=== PATIENT | female | born 1970 | race African-American/Black ===

== ENCOUNTER 2017-03-31 16:24 | Emergency (ER) | payer BC ==
[2017-03-31 18:20] LABS: Bilirubin Small (Negative); Blood, Urine Negative (Negative); Glucose, Urine (Dipstick) Negative (Negative); Ketone, Urine 40 mg/dL (Negative); Nitrite Negative (Negative); Protein, Urine (Dipstick) Negative (Neg-Trace); Urobilinogen 0.2 mg/dL (0.2-1.0)
[2017-03-31 19:00] LABS: #Eosinphils 0.1 thou/uL (0.0-0.7); #Lymphocytes 0.9 thou/uL (1.20-3.40); #Monocytes 0.5 thou/uL (0.11-0.59); %Basophils 0.2 % (0.0-1.0); %Eosinophils 0.7 % (0.0-10.0); %Lymphocytes 8.9 % (21.0-51.0); %Monocytes 5.1 % (0.0-10.0); Hematocrit 36.8 % (36.0-47.0); Mean Platelet Volume 8.1 fL (7.4-10.4); Red Blood Cell (RBC) Count 3.99 mill/uL (4.20-5.40); White Blood Cell (WBC) Count 10.6 thou/uL (4.8-10.8)
[2017-03-31 19:12] LABS: ALT (SGPT) 13 U/L (8-55); AST (SGOT) 16 U/L (5-34); Alkaline Phosphatase 43 U/L (40-150); Anion Gap 14 mmol/L (10-20); BUN (Urea Nitrogen) 12 mg/dL (7.0-18.7); Bilirubin, Total 1.3 mg/dL (0.2-1.2); Calc. Creatinine Clearance 0 mL/min (70-130); Calcium 9.3 mg/dL (7.8-10.44); Carbon Dioxide 22 mmol/L (22-29); Chloride 108 mmol/L (98-107); Estimated GFR-MDRD Greater than 90; Globulin 3.2 g/dL (2.4-3.5); Lipase 16 U/L (8-78); Protein, Total 7.4 g/dL (6.0-8.3)
[2017-03-31] MEDS ORDERED: Ondansetron HCl/PF 4 MG/2 ML Vial ONE (19:14)
[2017-03-31] MEDS ORDERED: Ketorolac Tromethamine 30 MG/ML VIAL ONE (19:14)
--- NOTE | 2017-03-31 21:47 | CT ---
ABDOMEN CT WITHOUT CONTRAST PELVIC CT WITHOUT CONTRAST: History: Nausea, vomiting. Onset this afternoon. Patient is feeling ill. Comparison: 01-31-14 Correlation: Pelvic ultrasound, 03-07-17. Technique: Abdomen and pelvic CT are performed without IV contrast. Coronal reformatted images are s ubmitted for interpretation. FINDINGS: ABDOMEN CT: Lung bases are clear. Heart size is normal. No significant pericardial fluid. Descending thoracic ao rta and the abdominal aorta has a normal caliber. No periaortic fat stranding. Gallbladder is surgically absent. Symmetric attenuation of psoas muscles. Limited evaluation of the solid organs due to lack of IV contrast. No obvious solid organ abnormalit ies. No gastrohepatic, retrocrural or periportal lymphadenopathy. No mesenteric mass, lymphadenopathy, free air or free fluid. Limited evaluation of the alimentary canal due to lack of oral contrast. No evidence of bowel obstru ction. Ileocecal junction is normal. Normal caliber appendix. There is some fluid attenuation throug hout the colon. No evidence of chronic wall thickening. Findings are nonspecific. Bilaterally, no hydronephrosis, nephrolithiasis or perinephric fat stranding. Bilateral ureters have a normal caliber. No hydroureter, periatrial fat stranding or ureterolithiasis. Evaluation of urete rs is slightly limited. PELVIC CT: The uterus and right adnexa are unremarkable. There is a hypodense mass in the left adnexa measuring 4.8 x 4.1 cm with an attenuation coefficient of 34 Hounsfield units. A complex left ovarian cyst i s favored. No pelvic lymphadenopathy, free air, or free fluid. The urinary bladder is unremarkable. There are no osteoblastic or osteolytic lesions. Pseudoarthrosis of the right L5 ala with the sacrum is noted. Nonspecific right external iliac lymph node measuring 0.9 x 0.6 cm. IMPRESSION: 1. No evidence of nephrolithiasis or obstructive uropathy. 2. Left adnexal mass, compatible with a complex left ovarian cyst. Follow up with [employer] consultation i s recommended. This cystic lesion was demonstrated on ultrasound from March 07, 2017. POS: [facility]
--- NOTE | 2017-04-06 11:45 | EKG ---
Test Reason : Blood Pressure : / mmHG Vent. Rate : 089 BPM Atrial Rate : 089 BPM P-R Int : 164 ms QRS Dur : 092 ms QT Int : 382 ms P-R-T Axes : 059 050 009 degrees QTc Int : 464 ms Normal sinus rhythm Normal ECG Confirmed by CHANTELLE VELASQUEZ, CYNDIE ([id number]), assignment desk editor SUMAN HERNANDEZ ([id number]) on 04/06/2017 11:44:54 AM Referred By: Confirmed By:CYNDIE LOCKHART MD
== END 2017-03-31 21:25 | disposition home or self-care (01) ==
LOC: ERS 16:24
DX: N83.202 Unspecified ovarian cyst, left side (principal); J45.909 Unspecified asthma, uncomplicated; F17.210 Nicotine dependence, cigarettes, uncomplicated
CPT/HCPCS: 36415; 74176; 80053; 81003; 83690; 84703; 85025; 93005; 96361; 96374; 96375; J1885; J2405

== ENCOUNTER 2017-04-09 05:53 | Emergency (ER) | payer BC ==
[2017-04-09] MEDS ORDERED: Ketorolac Tromethamine 60 MG/2 ML VIAL ONE (06:43)
== END 2017-04-09 07:09 | disposition home or self-care (01) ==
LOC: ERS 05:53
DX: K02.9 Dental caries, unspecified (principal); J45.909 Unspecified asthma, uncomplicated; D64.9 Anemia, unspecified; F17.210 Nicotine dependence, cigarettes, uncomplicated; Z79.899 Other long term (current) drug therapy
CPT/HCPCS: 96372; J1885

== ENCOUNTER 2017-05-15 21:22 | Emergency (ER) | payer BC, SELFPAY ==
[2017-05-15 22:02] LABS: #Basophils 0.1 thou/uL (0.0-0.2); #Eosinphils 0.1 thou/uL (0.0-0.7); #Monocytes 0.4 thou/uL (0.11-0.59); #Neutrophils 2.2 thou/uL (1.40-6.50); %Basophils 1.1 % (0.0-1.0); %Eosinophils 3.1 % (0.0-10.0); %Lymphocytes 41.9 % (21.0-51.0); %Monocytes 9.2 % (0.0-10.0); Hematocrit 34.5 % (36.0-47.0); Mean Platelet Volume 7.5 fL (7.4-10.4); Red Blood Cell (RBC) Count 3.82 mill/uL (4.20-5.40); White Blood Cell (WBC) Count 4.8 thou/uL (4.8-10.8)
== END 2017-05-16 00:24 | disposition home or self-care (01) ==
LOC: ERS 21:22
DX: N93.8 Other specified abnormal uterine and vaginal bleeding (principal); J45.909 Unspecified asthma, uncomplicated; D64.9 Anemia, unspecified; F17.210 Nicotine dependence, cigarettes, uncomplicated
CPT/HCPCS: 36415; 85025; 99284

== ENCOUNTER 2017-07-04 11:30 | Emergency (ER) | payer BC | END 2017-07-04 12:19 | disposition home or self-care (01) | LOC: ERS 11:30 | DX: J11.1 Influenza due to unidentified influenza virus with other respiratory manifestations (principal); J45.909 Unspecified asthma, uncomplicated; D64.9 Anemia, unspecified; F17.210 Nicotine dependence, cigarettes, uncomplicated | CPT/HCPCS: 99283 ==

== ENCOUNTER 2017-07-31 09:18 | Emergency (ER) | payer BC ==
--- NOTE | 2017-07-31 10:53 | RAD ---
SINGLE VIEW OF THE CHEST: COMPARISON: 12/30/16. HISTORY: Back pain and headache. FINDINGS: Single view of the chest shows a normal sized cardiomediastinal silhouette. There is no evidence of c onsolidation, mass, or pleural effusion. The bones are unremarkable. IMPRESSION: No evidence of acute cardiopulmonary disease. POS: [facility]
--- NOTE | 2017-07-31 11:46 | CT ---
HEAD CT WITHOUT CONTRAST: Date: 07-31-17 Comparison: 11-29-16 History: Headache, blurred vision, and intermittent dizziness. Technique: Serial axial CT imaging at 5 mm intervals from vertex through the skull base without contr ast. FINDINGS: The imaged paranasal sinuses and mastoid air cells are well aerated. There is no displace calvarial f racture. There is periventricular and deep white matter hypodensity, similar when compared to prior imaging. N o intracranial hemorrhage, midline shift, or mass effect. IMPRESSION: White matter hypodensity, nonspecific and atypical for a patient of this age. This may represent smal l vessel disease, demyelinating disease, etc. No acute findings are noted. Follow up brain MRI sugges jimbo. POS: [facility]
[2017-07-31 12:25] LABS: Mean Corpuscular HGB CONC 31.7 g/dL (32.0-36.0); Mean Corpuscular Hemoglobin 24.7 pg (27.0-31.0); Mean Corpuscular Volume 77.7 fl (81.0-99.0); Platelet Count 270 thou/uL (130-400); RBC Distribution Width 18.7 % (11.5-14.5); Red Blood Cell (RBC) Count 4.86 mill/uL (4.20-5.40); White Blood Cell (WBC) Count 3.8 thou/uL (4.8-10.8)
[2017-07-31 12:26] LABS: #Eosinphils 0.1 thou/uL (0.0-0.7); #Lymphocytes 1.6 thou/uL (1.20-3.40); #Monocytes 0.4 thou/uL (0.11-0.59); #Neutrophils 1.7 thou/uL (1.40-6.50); %Eosinophils 3.6 % (0.0-10.0); %Neutrophils 43.3 % (42.0-75.0)
[2017-07-31 12:33] LABS: Hypochromia SLIGHT = 6-15 cells (100X) (0-5/hpf); MDiff Complete? YES; Microcytosis SLIGHT = 6-15 cells (100X) (0-5/hpf); Polychromasia SLIGHT = 2-3 cells (100X) (0-2/hpf)
[2017-07-31 12:44] LABS: ALT (SGPT) 12 U/L (8-55); AST (SGOT) 14 U/L (5-34); Alkaline Phosphatase 67 U/L (40-150); Anion Gap 13 mmol/L (10-20); BUN (Urea Nitrogen) 9 mg/dL (7.0-18.7); Bilirubin, Total 0.9 mg/dL (0.2-1.2); CK (CPK) 83 U/L (29-168); Calc. Creatinine Clearance 0 mL/min (70-130); Calcium 9.2 mg/dL (7.8-10.44); Carbon Dioxide 23 mmol/L (22-29); Chloride 106 mmol/L (98-107); Estimated GFR-MDRD Greater than 90; Globulin 3.1 g/dL (2.4-3.5); Glucose 76 mg/dL (70-105); Magnesium 2.1 mg/dL (1.6-2.6); Protein, Total 7.1 g/dL (6.0-8.3); Sodium 138 mmol/L (136-145)
[2017-07-31 12:49] LABS: CKMB 0.6 ng/mL (0-6.6); Troponin I 0.014 ng/mL (< 0.028)
[2017-07-31] MEDS ORDERED: Ketorolac Tromethamine 30 MG/ML VIAL ONE ×2 (14:13→14:18)
== END 2017-07-31 14:21 | disposition home or self-care (01) ==
LOC: ERS 09:18
DX: G89.29 Other chronic pain (principal); M79.604 Pain in right leg; R51 Headache; H53.9 Unspecified visual disturbance; J45.909 Unspecified asthma, uncomplicated; D64.9 Anemia, unspecified; F17.210 Nicotine dependence, cigarettes, uncomplicated; Z79.899 Other long term (current) drug therapy
CPT/HCPCS: 36415; 70450; 71045; 80053; 82553; 83735; 83880; 84484; 85025; 86850; 86870; 86900; 86901; 93005; 96374; J1885

== ENCOUNTER 2017-10-19 14:41 | Emergency (ER) | payer SELFPAY ==
[~2017-10-19 14:41] MED LIST: ISOVUE-370 76%-LOCM 1 ML ONE
[2017-10-19 15:42] LABS: ALT (SGPT) 11 U/L (8-55); AST (SGOT) 17 U/L (5-34); Albumin 4.2 g/dL (3.5-5.0); Alkaline Phosphatase 55 U/L (40-150); Anion Gap 13 mmol/L (10-20); BUN (Urea Nitrogen) 15 mg/dL (7.0-18.7); Bilirubin, Total 0.4 mg/dL (0.2-1.2); Calc. Creatinine Clearance 0 mL/min (70-130); Calcium 8.7 mg/dL (7.8-10.44); Carbon Dioxide 20 mmol/L (22-29); Chloride 111 mmol/L (98-107); Estimated GFR-MDRD Greater than 90; Globulin 3.1 g/dL (2.4-3.5); Glucose 93 mg/dL (70-105); Potassium 4.1 mmol/L (3.5-5.1); Protein, Total 7.3 g/dL (6.0-8.3); Sodium 140 mmol/L (136-145)
[2017-10-19 15:45] LABS: CKMB 1.3 ng/mL (0-6.6); Troponin I Less than 0.010 ng/mL (< 0.028)
[2017-10-19 16:06] LABS: #Eosinphils 0.1 thou/uL (0.0-0.7); #Lymphocytes 1.4 thou/uL (1.20-3.40); #Monocytes 0.5 thou/uL (0.11-0.59); #Neutrophils 3.6 thou/uL (1.40-6.50); %Basophils 0.6 % (0.0-1.0); %Eosinophils 2.4 % (0.0-10.0); %Lymphocytes 24.1 % (21.0-51.0); %Monocytes 8.4 % (0.0-10.0); %Neutrophils 64.6 % (42.0-75.0); Hemoglobin 11.8 g/dL (12.0-16.0); Mean Corpuscular HGB CONC 31.7 g/dL (32.0-36.0); Mean Platelet Volume 8.4 fL (7.4-10.4); Platelet Count 240 thou/uL (130-400); RBC Distribution Width 17.9 % (11.5-14.5); Red Blood Cell (RBC) Count 4.55 mill/uL (4.20-5.40); White Blood Cell (WBC) Count 5.6 thou/uL (4.8-10.8)
[2017-10-19 16:36] LABS: Bilirubin Negative (Negative); Blood, Urine Moderate (Negative); Clarity CLOUDY (Clear); Glucose, Urine (Dipstick) Negative (Negative); Leukocyte Moderate (Negative); Nitrite Positive (Negative); Protein, Urine (Dipstick) Negative (Neg-Trace); Specific Gravity, Urine 1.025 (1.002-1.036); Urobilinogen 0.2 mg/dL (0.2-1.0); pH, Urine 5.5 (5.0-9.0)
[2017-10-19 16:38] LABS: Bacteria/HPF 4+ HPF (None Seen); Hyaline Casts/LPF 0-3 HYALINE CAST LPF (0-3 Hyaline); Pathc Cast-AUWi Flag 0.29 (0-2.49); WBC/HPF 21-50 HPF (0-3)
[2017-10-19 16:48] LABS: RBC/HPF 0-3 HPF (0-3)
[2017-10-19 16:53] LABS: BHCG - Serum Negative (NEGATIVE); Pregs Control Background? CLEAR/WHITE (CLR/WHITE); Pregs Control Bar Appear? YES (CONTROL BAR)
--- NOTE | 2017-10-19 17:32 | CT ---
CT THORAX WITH IV CONTRAST AND 3D RECONSTRUCTIONS: 10/19/17 HISTORY: Episode of shortness of breath and near syncope. Patient reports pain in middle of back following diz ziness. FINDINGS: No filling defects are seen in the pulmonary arteries to suggest a pulmonary embolus. The thoracic ao rta is normal in caliber without evidence of an aortic dissection. There is no lymphadenopathy and me diastinal structures have a normal CT appearance. There are three separate pulmonary nodules seen within the right middle lobe, largest measuring 5 mm. There are also a few pleural based nodules in the right lower lobe adjacent to the major fissure wi th an additional tiny pleural based nodular density measuring less than 4 mm at the posterolateral as pect right lower lobe. No pulmonary nodules are seen on the left. There is no pleural effusion and th e lungs are otherwise clear. A few remote left rib fractures are seen. There are post cholecystectomy changes. Remainder of the upper abdomen demonstrates a normal CT appea sam for phase of imaging. IMPRESSION: 1. Pulmonary nodules within the right middle lobe with a few pleural based nodular densities in the right lower lobe. The pleural based nodular densities were partially visualized on a prior CT abd omen in 2013. However, given that some of the pulmonary nodules were not visualized on the prior stud y, short interval followup CT evaluation of the chest in six months is recommended. 2. No CT evidence of a pulmonary embolus; thoracic aorta is normal in caliber. Code LN POS: [facility]
== END 2017-10-19 16:59 | disposition home or self-care (01) ==
LOC: ERS 14:41
DX: R07.89 Other chest pain (principal); R55 Syncope and collapse; N39.0 Urinary tract infection, site not specified; J45.909 Unspecified asthma, uncomplicated; D64.9 Anemia, unspecified; F17.210 Nicotine dependence, cigarettes, uncomplicated
CPT/HCPCS: 36415; 71275; 80053; 81003; 81015; 82553; 84484; 84703; 85025; 93005; 99406

== ENCOUNTER 2017-11-19 10:34 | Emergency (ER) | payer SELFPAY ==
[2017-11-19 11:23] LABS: #Eosinphils 0.1 thou/uL (0.0-0.7); #Lymphocytes 0.9 thou/uL (1.20-3.40); #Monocytes 0.3 thou/uL (0.11-0.59); %Basophils 0.3 % (0.0-1.0); %Eosinophils 2.3 % (0.0-10.0); %Lymphocytes 20.6 % (21.0-51.0); %Monocytes 6.3 % (0.0-10.0); %Neutrophils 70.6 % (42.0-75.0); Mean Corpuscular HGB CONC 32.9 g/dL (32.0-36.0); Mean Corpuscular Hemoglobin 28.1 pg (27.0-31.0); Mean Corpuscular Volume 85.3 fl (81.0-99.0); Mean Platelet Volume 7.6 fL (7.4-10.4); Platelet Count 248 thou/uL (130-400); RBC Distribution Width 16.4 % (11.5-14.5); Red Blood Cell (RBC) Count 4.27 mill/uL (4.20-5.40); White Blood Cell (WBC) Count 4.2 thou/uL (4.8-10.8)
--- NOTE | 2017-11-19 11:30 | RAD ---
FRONTAL AND LATERAL IMAGING OF CHEST: Date: 11/19/17 COMPARISON: 11/29/16. HISTORY: Back pain, nausea, and palpitations. FINDINGS: Heart and mediastinal contours are stable. No pneumothorax, pleural fluid, lobar consolidation, or al veolar edema. Osseous structures appear intact. IMPRESSION: No acute findings. POS: [facility]
[2017-11-19 11:44] LABS: Troponin I Less than 0.010 ng/mL (< 0.028)
[2017-11-19 12:14] LABS: ALT (SGPT) 11 U/L (8-55); AST (SGOT) 16 U/L (5-34); Albumin 4.2 g/dL (3.5-5.0); Alkaline Phosphatase 47 U/L (40-150); Anion Gap 12 mmol/L (10-20); BUN (Urea Nitrogen) 8 mg/dL (7.0-18.7); Bilirubin, Total 0.5 mg/dL (0.2-1.2); Calc. Creatinine Clearance 0 mL/min (70-130); Calcium 8.4 mg/dL (7.8-10.44); Carbon Dioxide 21 mmol/L (22-29); Chloride 108 mmol/L (98-107); Estimated GFR-MDRD Greater than 90; Glucose 81 mg/dL (70-105); Potassium 3.7 mmol/L (3.5-5.1); Protein, Total 7.2 g/dL (6.0-8.3); Sodium 137 mmol/L (136-145)
[2017-11-19] MEDS ORDERED: Ondansetron ODT 4 MG TAB ONE (13:48)
[2017-11-19] MEDS ORDERED: Dicyclomine 20 MG TAB ONE (13:48)
[2017-11-19 14:16] LABS: Bilirubin Negative (Negative); Blood, Urine Moderate (Negative); Clarity CLOUDY (Clear); Glucose, Urine (Dipstick) Negative (Negative); Leukocyte Negative (Negative); Nitrite Negative (Negative); Protein, Urine (Dipstick) Negative (Neg-Trace); Specific Gravity, Urine 1.014 (1.002-1.036); Urobilinogen 0.2 mg/dL (0.2-1.0)
[2017-11-19 14:21] LABS: Bacteria/HPF 1+ HPF (None Seen); Hyaline Casts/LPF 0-3 HYALINE CAST LPF (0-3 Hyaline); Pathc Cast-AUWi Flag 0.29 (0-2.49)
[2017-11-19 14:25] LABS: Yeast-AUWi Flag 87.5 (0-25.0)
[2017-11-19 14:38] LABS: RBC/HPF 0-3 HPF (0-3); Yeast-All Forms None Seen HPF (None Seen)
== END 2017-11-19 15:11 | disposition home or self-care (01) ==
LOC: ERS 10:34
DX: R10.12 Left upper quadrant pain (principal); R11.0 Nausea; J45.909 Unspecified asthma, uncomplicated; D64.9 Anemia, unspecified; F17.210 Nicotine dependence, cigarettes, uncomplicated; Z79.899 Other long term (current) drug therapy
CPT/HCPCS: 36415; 71046; 80053; 81003; 81015; 82553; 83690; 84484; 85025; 87086; 93005; Q0162

== ENCOUNTER 2017-12-16 09:30 | Observation (INO) | payer SELFPAY ==
[2017-12-16] MEDS ORDERED: Regadenoson 0.4 MG/5 ML SYRINGE ONE (09:32)
[2017-12-16] MEDS ORDERED: Lorazepam 2 MG/ML VIAL ONE (09:47)
--- NOTE | 2017-12-16 10:07 | RAD ---
PORTABLE UPRIGHT FRONTAL CHEST RADIOGRAPH: Date: 12-16-17 Comparison: 07-31-17 History: Chest pain with dizziness and chest pressure. FINDINGS: Heart and mediastinal contours are stable. No pneumothorax, pleural fluid, focal consolidation or aileen eolar edema. IMPRESSION: No acute findings. POS: [facility]
[2017-12-16 10:38] LABS: #Eosinphils 0.1 thou/uL (0.0-0.7); #Lymphocytes 1.3 thou/uL (1.20-3.40); #Monocytes 0.4 thou/uL (0.11-0.59); #Neutrophils 2.2 thou/uL (1.40-6.50); %Basophils 0.9 % (0.0-1.0); %Eosinophils 2.6 % (0.0-10.0); %Lymphocytes 33.3 % (21.0-51.0); %Monocytes 9.8 % (0.0-10.0); %Neutrophils 53.4 % (42.0-75.0); Hemoglobin 13.4 g/dL (12.0-16.0); Mean Corpuscular HGB CONC 32.6 g/dL (32.0-36.0); Mean Corpuscular Hemoglobin 27.5 pg (27.0-31.0); Mean Corpuscular Volume 84.4 fl (81.0-99.0); Mean Platelet Volume 7.9 fL (7.4-10.4); Platelet Count 219 thou/uL (130-400); RBC Distribution Width 16.6 % (11.5-14.5); Red Blood Cell (RBC) Count 4.89 mill/uL (4.20-5.40)
[2017-12-16] MEDS ORDERED: Aspirin 325 MG TAB ONE ×2 (10:50→11:07)
[2017-12-16] MEDS ORDERED: Enoxaparin Sodium 100 MG/ML SYRINGE ONE (10:50)
[2017-12-16 10:57] LABS: ALT (SGPT) 18 U/L (8-55); AST (SGOT) 21 U/L (5-34); Albumin 4.1 g/dL (3.5-5.0); Alkaline Phosphatase 51 U/L (40-150); Anion Gap 13 mmol/L (10-20); BUN (Urea Nitrogen) 14 mg/dL (7.0-18.7); CK (CPK) 179 U/L (29-168); Calc. Creatinine Clearance 0 mL/min (70-130); Carbon Dioxide 20 mmol/L (22-29); Chloride 108 mmol/L (98-107); Estimated GFR-MDRD Greater than 90; Globulin 2.9 g/dL (2.4-3.5); Glucose 90 mg/dL (70-105); Lipase 19 U/L (8-78); Potassium 3.8 mmol/L (3.5-5.1); Sodium 137 mmol/L (136-145)
[2017-12-16 11:01] LABS: Troponin I Less than 0.010 ng/mL (< 0.028)
[2017-12-16] MEDS ORDERED: Acetaminophen 325 MG TAB PO PRN (11:28)
[2017-12-16] MEDS ORDERED: Nitroglycerin 0.4 MG TAB (25 Tab Bottle) PO PRN (11:28)
[2017-12-16] MEDS ORDERED: Guaifenesin DM 100-10/5 ML UDCUP PO PRN (11:28)
[2017-12-16] MEDS ORDERED: Ondansetron HCl/PF 4 MG/2 ML Vial IVP PRN (11:28)
[2017-12-16 12:17] VITALS: BMI 43.0
[2017-12-16 14:32] LABS: Troponin I Less than 0.010 ng/mL (< 0.028)
--- NOTE | 2017-12-16 15:36 | HP ---
REASON FOR ADMISSION: Atrial fibrillation with rapid ventricular response, chest pain. HISTORY OF PRESENT ILLNESS: The patient gives history of developing retrosternal chest tightening while she was at work around 9 in the morning. This lasted for 45 minutes. She also felt dizzy and almost fell. Other co- workers tried to make her sit, but when patient tried to stand up, she felt dizzy again. On arrival in ER, the patient had an EKG done, which showed atrial fibrillation with RVR. New onset atrial fibrillation. The patient did not have any radiation of her pain or tightness. No complaints of cough or expectoration. No complaints of PND or orthopnea. No prior cardiac workup in the past. PAST MEDICAL AND SURGICAL HISTORY: History of chronic anemia due to menorrhagia for which she follows up with primary care physician at [facility]. Cholecystectomy, tubal ligation. CURRENT MEDICATIONS: Ferrous sulfate 325 mg daily, takes medroxyprogesterone for her menorrhagia and the patient thinks that she is perimenopausal. ALLERGIES: CODEINE. PERSONAL HISTORY: Smokes half pack a day from last 20 years or so. Does not abuse alcohol or drugs. FAMILY HISTORY: Mother lived up to 73 years. She has had history of diabetes and hypertension. Father at the age of 82, had hypertension and COPD. CODE STATUS: FULL. REVIEW OF SYSTEMS: The following complete review of systems was negative, unless otherwise mentioned in the HPI or below: Constitutional: Weight loss or gain, ability to conduct usual activities. Skin: Rash, itching. Eyes: Double vision, pain. ENT/Mouth: Nose bleeding, neck stiffness, pain, tenderness. Cardiovascular: Palpitations, dyspnea on exertion, orthopnea. Respiratory: Shortness of breath, wheezing, cough, hemoptysis, fever or night sweats. Gastrointestinal: Poor appetite, abdominal pain, heartburn, nausea, vomiting, constipation, or diarrhea. Genitourinary: Urgency, frequency, dysuria, nocturia. Musculoskeletal: Pain, swelling. Neurologic/Psychiatric: Anxiety, depression. Allergy/Immunologic: Skin rash, bleeding tendency. PHYSICAL EXAMINATION: GENERAL: The patient is a 47-year-old female who is currently not in any acute distress. VITAL SIGNS: Blood pressure 146/90, pulse 90 per minute, respiratory rate 20 per minute, temperature 98.9 degrees Fahrenheit, and saturating 98% on room air. NECK: Supple, no elevated JVD. HEENT: Eyes: Extraocular muscles intact. Pupils reacting to light. Oral cavity mucous membranes are moist. No exudates or congestion. CARDIOVASCULAR: S1 and S2 heard. Irregular rhythm. RESPIRATORY: Air entry 1+ bilateral. Scattered rhonchi plus no rales or wheezes. ABDOMEN: Soft, bowel sounds heard. No tenderness, rigidity or guarding. EXTREMITIES: No peripheral edema or calf tenderness. VASCULAR SYSTEM: Peripheral pulses 2+ bilateral, no ischemic ulcerations or gangrene. CENTRAL NERVOUS SYSTEM: No gross focal deficits seen. Patient is alert, awake , oriented well. PSYCHIATRIC: The patient is a bit anxious, otherwise no hallucinations or delusions. LABORATORY AND X-RAY FINDINGS: White count of 4, H&H 13 and 41, platelet count 219, MCV is 84 with 53% neutrophils. Serum bicarbonate is 20, BUN 14, creatinine 0.7, glucose 90. Liver enzymes within normal limits. First set of cardiac enzymes are negative. Chest x-ray done shows no acute findings. EKG done shows atrial fibrillation at 100 beats per minute. CLINICAL IMPRESSION AND PLAN: The patient will be under observation on telemetry for new onset atrial fibrillation with rapid ventricular response and chest tightness. We will obtain two more sets of cardiac enzymes and a nuclear stress test. Echo with 2D Doppler for LV function and to rule out thrombus. We will also keep her n.p.o. and obtain cardiology consultation with Dr. Rajan, who is regional tanker truck driver. We will place her on a full dose aspirin, Lopressor 25 mg twice daily, and hold off on Lovenox until after her stress test. The patient's BMI is 43, likely might have a component of obesity hypoventilation with likely increased RV pressures. We will continue to closely monitor her on telemetry. Addendum: stress test is -ve for reversible ischemia. DC pt home on full dose aspirin and lopressor. Please note this is a same day admit and discharge under observation. CHEMO
[2017-12-16 15:56] VITALS: BP 122/62; TEMP 98.6
--- NOTE | 2017-12-16 16:42 | NM ---
CARDIAC SPECT: HISTORY: A 47-year-old female with chest pain and asthma. Smoker. TECHNIQUE: A stress only myocardial perfusion scan was performed following the intravenous administration of 29 millicuries of technetium 99m sestamibi. Pharmacologic stress with Lexiscan was monitored and interp reted by LUIS Huang. FINDINGS: Homogeneous tracer distribution is seen in the myocardial segments on the post stress images. GATED SPECT LVEF: 64% WALL MOTION: Normal. IMPRESSION: Normal post stress myocardial perfusion scan. POS: [facility]
[2017-12-16] MEDS ORDERED: Ferrous Sulfate 325 MG TAB PO SCH (17:00)
[2017-12-16 17:08] LABS: Troponin I Less than 0.010 ng/mL (< 0.028)
--- NOTE | 2017-12-16 19:13 | CON ---
DATE OF SERVICE: 12/16/2017 REASON FOR CONSULTATION: Atrial fibrillation. HISTORY OF PRESENT ILLNESS: Ms. Cai is a 47-year-old woman with no significant past medical hist ory, recently presented with tachycardia. No chest pain or pressure noted. Only complaint was palpi tations. She presented to the emergency room. She converted to sinus rhythm. She underwent a nonin vasive stress study that was negative for ischemia. PAST MEDICAL HISTORY: Menorrhagia, anemia. CARDIAC RISK FACTORS: Positive for tobacco abuse. Negative hypertension. Negative hyperlipidemia. Negative diabetes mellitus. Negative family history of coronary artery disease. ALLERGIES: CODEINE. HOME MEDICATIONS: Include iron sulfate and progesterone. REVIEW OF SYSTEMS: 10-point review of systems were reviewed and as above, otherwise negative. PHYSICAL EXAMINATION: VITAL SIGNS: Blood pressure 122/62, pulse 98, temperature 98.6. GENERAL: Patient is a pleasant female who is in no acute distress. The patient appears her stated a ge. NEUROLOGIC: The patient is alert and oriented times 3 with no focal neurologic deficits. HEENT: Sclerae without icterus. Mouth has moist mucous membranes with normal pallor. NECK: No JVD. Carotid upstroke brisk. No bruits bilaterally. LUNGS: Clear to auscultation with unlabored respirations. BACK: No scoliosis or kyphosis. CARDIAC: Regular rate and rhythm with normal S1 and S2. No S3 or S4 noted. No significant rubs, murmurs, thrills, or gallops noted throughout the precordium. PMI is not displa noe. There is no parasternal heave. ABDOMEN: Soft, nontender, nondistended. No peritoneal signs present. No hepatosplenomegaly. No abnormal striae. EXTREMITIES: 2+ femoral and 2+ dorsalis pedis pulses. No cyanosis, clubbing, or edema. SKIN: No gross abnormalities. PERTINENT LABS: Hemoglobin 13.4, creatinine 0.7. Stress test myocardial perfusion scan negative for ischemia. IMPRESSION: Atrial fibrillation, now sinus rhythm. RECOMMENDATIONS: Ms. Cai' CHADS-VASc score is estimated at 1 given that she is female. I discus sed risks, benefits of anticoagulation therapy. Given menorrhagia, she is unlikely a good candidate for anticoagulation plus her bleeding risk, at this point is higher than the risk of cerebrovascular accident. We will then defer and go with full dose aspirin. We would also recommend low dose beta b locker therapy. Plan is to follow up with Ms. Cai in next 1-2 weeks.
[2017-12-16] MEDS ORDERED: Metoprolol Tartrate 25 MG TAB PO SCH (21:00)
[2017-12-16] MEDS ORDERED: Docusate 100 MG CAP PO SCH (21:00)
[2017-12-16] MEDS ORDERED: Famotidine 20 MG TAB PO SCH (21:00)
[2017-12-17] MEDS ORDERED: Enoxaparin Sodium 40 MG/0.4 ML SYRINGE SC SCH (09:00)
[2017-12-17] MEDS ORDERED: Aspirin 325 MG TAB PO SCH ×2 (09:00)
== END 2017-12-16 18:12 | disposition home or self-care (01) ==
LOC: ERS 09:30 → 2SW 11:58
PROVIDERS: ADMIT Internal Medicine; ATTEND Internal Medicine
DX: I48.91 Unspecified atrial fibrillation (principal); D50.0 Iron deficiency anemia secondary to blood loss (chronic); F41.9 Anxiety disorder, unspecified; F32.9 Major depressive disorder, single episode, unspecified; F17.210 Nicotine dependence, cigarettes, uncomplicated; Z88.5 Allergy status to narcotic agent; Z79.82 Long term (current) use of aspirin; Z79.899 Other long term (current) drug therapy
CPT/HCPCS: 36415; 71045; 78452; 80053; 82550; 82553; 83690; 84484; 85025; 93005; 93017; 96372; 96374; A9500; G0378; J1650; J2060; J2785

== ENCOUNTER 2017-12-16 22:31 | Emergency (ER) | payer SELFPAY ==
[2017-12-17] MEDS ORDERED: Acetaminophen 500 MG TAB ONE (00:33)
== END 2017-12-17 01:41 | disposition home or self-care (01) ==
LOC: ERS 22:31
DX: R00.2 Palpitations (principal); D64.9 Anemia, unspecified; J45.909 Unspecified asthma, uncomplicated; F17.210 Nicotine dependence, cigarettes, uncomplicated; Z71.6 Tobacco abuse counseling; Z79.899 Other long term (current) drug therapy
CPT/HCPCS: 93005; 99406

== ENCOUNTER 2018-01-11 06:24 | Emergency (ER) | payer SELFPAY ==
[2018-01-11 07:15] LABS: #Eosinphils 0.1 thou/uL (0.0-0.7); #Monocytes 0.5 thou/uL (0.11-0.59); #Neutrophils 2.6 thou/uL (1.40-6.50); %Basophils 0.9 % (0.0-1.0); %Eosinophils 2.8 % (0.0-10.0); %Lymphocytes 37.4 % (21.0-51.0); %Monocytes 9.3 % (0.0-10.0); %Neutrophils 49.7 % (42.0-75.0); Mean Corpuscular HGB CONC 34.9 g/dL (32.0-36.0); Mean Corpuscular Hemoglobin 29.7 pg (27.0-31.0); Mean Corpuscular Volume 85.1 fL (78.0-98.0); Mean Platelet Volume 7.8 fL (7.4-10.4); Platelet Count 201 thou/uL (130-400); Red Blood Cell (RBC) Count 4.03 mill/uL (4.20-5.40); White Blood Cell (WBC) Count 5.2 thou/uL (4.8-10.8)
[2018-01-11] MEDS ORDERED: Ondansetron ODT 4 MG TAB ONE (07:23)
--- NOTE | 2018-01-11 07:50 | CT ---
CT ABDOMEN AND PELVIS WITH IV CONTRAST: Date: 01/11/18 PROVIDED CLINICAL HISTORY: Left-sided pain. FINDINGS: The visualized lung bases appear clear. The solid abdominal organs demonstrate an unremarkable CT kristina earance. There is no bowel dilatation, inflammatory fat stranding, free fluid, or free air apparent. The appendix appears normal. There is a 5.3 cm left hemipelvic mass demonstrating Hounsfield units gr eater than expected for simple fluid. This may reflect a hemorrhagic physiologic cyst but is incomple tely characterized by CT. IUD is noted within the endometrial canal. The osseous structures demonstrate no concerning lytic or blastic lesions. Bilateral L5 pars defects are seen. Changes of prior cholecystectomy are seen. IMPRESSION: 5.3 cm left hemipelvic mass, possibly a hemorrhagic physiologic cyst. Correlation with pelvic ultraso und recommended. POS: [facility]
[2018-01-11 08:03] LABS: ALT (SGPT) 12 U/L (8-55); AST (SGOT) 15 U/L (5-34); Alkaline Phosphatase 41 U/L (40-150); Anion Gap 11 mmol/L (10-20); BUN (Urea Nitrogen) 13 mg/dL (7.0-18.7); Bilirubin, Total 0.8 mg/dL (0.2-1.2); Calc. Creatinine Clearance 0 mL/min (70-130); Calcium 8.6 mg/dL (7.8-10.44); Carbon Dioxide 22 mmol/L (22-29); Chloride 112 mmol/L (98-107); Estimated GFR-MDRD Greater than 90; Globulin 2.6 g/dL (2.4-3.5); Glucose 84 mg/dL (70-105); Lipase 51 U/L (8-78); Protein, Total 6.6 g/dL (6.0-8.3); Sodium 141 mmol/L (136-145)
[2018-01-11] MEDS ORDERED: Morphine 4 MG/ML VIAL ONE (08:17)
--- NOTE | 2018-01-11 10:30 | ULT ---
PELVIC ULTRASOUND INCLUDING TRANSABDOMINAL AND TRANSVAGINAL AND VASCULAR DUPLEX WITH COLOR AND SPECTR AL DOPPLER IMAGING: Date: 01/11/18 COMPARISON: Prior CT dated 01/11/18. Prior pelvic ultrasound examination dated 11/29/16. HISTORY: 47-year-old female with left-sided pelvic pain. Irregular periods. FINDINGS: Uterus measures 11.0 x 4.7 x 4.9 cm. Endometrium is 0.4 cm. Intrauterine device is demonstrated. Right ovary is not demonstrated. Left ovary measures 4.6 x 5.4 x 5.2 cm and contains a cyst measuring 3.9 x 4.0 x 4.9 cm. Vascular flow is documented to the left ovary. This left ovarian cyst was present on the prior pelvic ultrasound examination dating back to 03/07/17 and is overall stable. IMPRESSION: Overall stable left ovarian thin-walled cyst dating back to a prior study of 03/07/17. Nonvisualized right ovary. IUD in place. No abscess or abnormal fluid collection. POS: [facility]
[2018-01-11] MEDS ORDERED: ISOVUE-370 76%-LOCM 1 ML ONE (12:22)
== END 2018-01-11 10:16 | disposition home or self-care (01) ==
LOC: ERS 06:24
DX: N83.202 Unspecified ovarian cyst, left side (principal); D64.9 Anemia, unspecified; J45.909 Unspecified asthma, uncomplicated; F41.9 Anxiety disorder, unspecified; F17.210 Nicotine dependence, cigarettes, uncomplicated; Z79.899 Other long term (current) drug therapy
CPT/HCPCS: 74177; 76856; 80053; 83690; 85025; 96361; 96374; J2270; Q0162

== ENCOUNTER 2018-01-14 23:23 | Emergency (ER) | payer SELFPAY ==
[2018-01-15] MEDS ORDERED: Metoprolol Tartrate 5 MG/5 ML VIAL ONE (01:06)
[2018-01-15 01:15] LABS: #Eosinphils 0.1 thou/uL (0.0-0.7); #Lymphocytes 1.9 thou/uL (1.20-3.40); #Monocytes 0.4 thou/uL (0.11-0.59); #Neutrophils 3.8 thou/uL (1.40-6.50); %Basophils 0.3 % (0.0-1.0); %Eosinophils 1.6 % (0.0-10.0); %Lymphocytes 30.8 % (21.0-51.0); %Monocytes 6.7 % (0.0-10.0); %Neutrophils 60.5 % (42.0-75.0); Hemoglobin 12.9 g/dL (12.0-16.0); Mean Corpuscular HGB CONC 34.1 g/dL (32.0-36.0); Mean Corpuscular Hemoglobin 29.2 pg (27.0-31.0); Mean Corpuscular Volume 85.5 fL (78.0-98.0); Mean Platelet Volume 7.6 fL (7.4-10.4); Platelet Count 214 thou/uL (130-400); RBC Distribution Width 18.3 % (11.5-14.5); Red Blood Cell (RBC) Count 4.42 mill/uL (4.20-5.40); White Blood Cell (WBC) Count 6.2 thou/uL (4.8-10.8)
[2018-01-15 01:27] LABS: ALT (SGPT) 12 U/L (8-55); AST (SGOT) 15 U/L (5-34); Albumin 3.9 g/dL (3.5-5.0); Alkaline Phosphatase 49 U/L (40-150); Anion Gap 12 mmol/L (10-20); BUN (Urea Nitrogen) 12 mg/dL (7.0-18.7); Bilirubin, Total 0.6 mg/dL (0.2-1.2); Calc. Creatinine Clearance 0 mL/min (70-130); Calcium 8.9 mg/dL (7.8-10.44); Carbon Dioxide 20 mmol/L (22-29); Chloride 109 mmol/L (98-107); Estimated GFR-MDRD Greater than 90; Globulin 2.8 g/dL (2.4-3.5); Glucose 138 mg/dL (70-105); Potassium 3.2 mmol/L (3.5-5.1); Protein, Total 6.7 g/dL (6.0-8.3); Sodium 138 mmol/L (136-145)
[2018-01-15 01:31] LABS: CKMB 1.8 ng/mL (0-6.6); Troponin I Less than 0.010 ng/mL (< 0.028)
[2018-01-15] MEDS ORDERED: Metoprolol Tartrate 25 MG TAB ONE (01:51)
--- NOTE | 2018-01-15 07:42 | RAD ---
SINGLE VIEW CHEST: Date: 01/15/18 COMPARISON: 12/16/17. HISTORY: Heart racing and feeling dizziness. FINDINGS: Single view of the chest shows an enlarged but stable cardiomediastinal silhouette. There is no evide nce of consolidation, mass, or pleural effusion. The bones are unremarkable. IMPRESSION: Stable cardiomegaly. POS: [facility]
== END 2018-01-15 02:00 | disposition home or self-care (01) ==
LOC: ERS 23:23
DX: I48.0 Paroxysmal atrial fibrillation (principal); D64.9 Anemia, unspecified; J45.909 Unspecified asthma, uncomplicated; F41.9 Anxiety disorder, unspecified; F17.210 Nicotine dependence, cigarettes, uncomplicated
CPT/HCPCS: 71045; 80053; 82553; 84484; 85025; 93005; 96374

== ENCOUNTER 2018-03-04 22:13 | Inpatient (IN) | payer SELFPAY ==
[2018-03-04] MEDS ORDERED: Aspirin 325 MG TAB ONE (22:54)
[2018-03-04 23:29] LABS: #Basophils 0.1 thou/uL (0.0-0.2); #Eosinphils 0.1 thou/uL (0.0-0.7); #Lymphocytes 1.9 thou/uL (1.20-3.40); #Monocytes 0.5 thou/uL (0.11-0.59); #Neutrophils 2.4 thou/uL (1.40-6.50); %Basophils 1.3 % (0.0-1.0); %Eosinophils 2.1 % (0.0-10.0); %Lymphocytes 38.2 % (21.0-51.0); %Monocytes 9.6 % (0.0-10.0); %Neutrophils 48.8 % (42.0-75.0); Hemoglobin 12.8 g/dL (12.0-16.0); Mean Corpuscular Hemoglobin 31.6 pg (27.0-31.0); Mean Corpuscular Volume 90.2 fL (78.0-98.0); Mean Platelet Volume 8.2 fL (7.4-10.4); Platelet Count 195 thou/uL (130-400); RBC Distribution Width 16.2 % (11.5-14.5); Red Blood Cell (RBC) Count 4.05 mill/uL (4.20-5.40); White Blood Cell (WBC) Count 4.9 thou/uL (4.8-10.8)
--- NOTE | 2018-03-04 23:42 | CT ---
NONCONTRAST CT HEAD 03/04/18 HISTORY: Left sided facial numbness for three days. Stroke. COMPARISON: 07/31/17. FINDINGS: Again, there is decreased attenuation of the periventricular white matter which is nonspecific but li eugenia attributable to chronic small vessel ischemic changes. Low density area in the anterior limb rig ht internal capsule is also again present and likely related to remote lacunar infarction. There is n o evidence of an acute cortical infarction, hemorrhage, mass effect, or midline shift. Mild cerebral volume loss is present. Ventricular system is normal in size, shape and position for the degree of villar lcal atrophy. There has been no interval change when compared to the prior exam. IMPRESSION: 1. No acute intracranial abnormality demonstrated. 2. White matter hypodensities which is nonspecific but may be attributable to chronic small vess el ischemic changes, but the degree of chronic white matter ischemic change is atypical for a patient of this age. Demyelinating process versus other etiologies cannot be entirely excluded, but this is a stable finding. POS: [facility]
--- NOTE | 2018-03-04 23:43 | RAD ---
PORTABLE AP CHEST X-RAY 03/04/18 HISTORY: Stroke, left sided facial numbness for three days. COMPARISON: 01/15/18. FINDINGS: The cardiac silhouette and pulmonary vasculature are within normal limits for the portable technique of the study. The lungs are clear. Remote left sided rib fractures are present. There has been no int erval change from prior exam. IMPRESSION: No acute cardiopulmonary process is demonstrated. POS: [facility]
[2018-03-04 23:51] LABS: ALT (SGPT) 12 U/L (8-55); AST (SGOT) 14 U/L (5-34); Alkaline Phosphatase 44 U/L (40-150); Anion Gap 15 mmol/L (10-20); BUN (Urea Nitrogen) 12 mg/dL (7.0-18.7); Bilirubin, Total 0.6 mg/dL (0.2-1.2); Calc. Creatinine Clearance 0 mL/min (70-130); Calcium 8.7 mg/dL (7.8-10.44); Carbon Dioxide 18 mmol/L (22-29); Chloride 110 mmol/L (98-107); Estimated GFR-MDRD Greater than 90; Globulin 2.9 g/dL (2.4-3.5); Glucose 85 mg/dL (70-105); Potassium 3.5 mmol/L (3.5-5.1); Protein, Total 6.9 g/dL (6.0-8.3); Sodium 139 mmol/L (136-145)
[2018-03-04 23:54] LABS: CKMB 1.2 ng/mL (0-6.6); Troponin I Less than 0.010 ng/mL (< 0.028)
[2018-03-05] MEDS ORDERED: Metoclopramide HCl 10 MG/2 ML VIAL ONE (00:49)
[2018-03-05] MEDS ORDERED: Bisacodyl 5 MG TAB PO PRN (02:20)
[2018-03-05] MEDS ORDERED: Guaifenesin DM 100-10/5 ML UDCUP PO PRN (02:20)
[2018-03-05] MEDS ORDERED: Ondansetron HCl/PF 4 MG/2 ML Vial IVP PRN (02:20)
[2018-03-05] MEDS ORDERED: Acetaminophen 325 MG TAB PO PRN (02:20)
[2018-03-05] MEDS ORDERED: Milk Of Magnesia 30 ML UDCUP PO PRN (02:20)
[2018-03-05] MEDS ORDERED: Acetaminophen 1,000 MG in Premix Bag 1 BAG IVPB PRN (02:24)
[2018-03-05] MEDS ORDERED: Piperacillin/Tazobactam 3.375 GM in Sodium Chloride 0.9% 100 ML IVPB SCH (03:00)
[2018-03-05 03:21] VITALS: BMI 38.7
[2018-03-05] MEDS: Sodium Chloride 0.9% 1,000 ML IV SCH ×2 (03:53→14:34)
[2018-03-05] MEDS: Vancomycin HCl 1.75 GM in Sodium Chloride 0.9% 500 ML IVPB SCH ×2 (03:54→04:33)
[2018-03-05 06:57] LABS: #Eosinphils 0.1 thou/uL (0.0-0.7); #Lymphocytes 1.8 thou/uL (1.20-3.40); #Monocytes 0.3 thou/uL (0.11-0.59); #Neutrophils 1.8 thou/uL (1.40-6.50); %Basophils 1.1 % (0.0-1.0); %Eosinophils 3.2 % (0.0-10.0); %Lymphocytes 44.5 % (21.0-51.0); %Monocytes 8.2 % (0.0-10.0); Hemoglobin 12.3 g/dL (12.0-16.0); Mean Corpuscular HGB CONC 33.7 g/dL (32.0-36.0); Mean Corpuscular Hemoglobin 30.5 pg (27.0-31.0); Mean Corpuscular Volume 90.5 fL (78.0-98.0); Platelet Count 172 thou/uL (130-400); Red Blood Cell (RBC) Count 4.03 mill/uL (4.20-5.40); White Blood Cell (WBC) Count 4.1 thou/uL (4.8-10.8)
[2018-03-05 07:14] LABS: Anion Gap 10 mmol/L (10-20); BUN (Urea Nitrogen) 10 mg/dL (7.0-18.7); Calc. Creatinine Clearance 160 mL/min (70-130); Calcium 8.2 mg/dL (7.8-10.44); Carbon Dioxide 22 mmol/L (22-29); Chloride 111 mmol/L (98-107); Estimated GFR-MDRD Greater than 90; Glucose 84 mg/dL (70-105); Potassium 3.6 mmol/L (3.5-5.1); Sodium 139 mmol/L (136-145)
--- NOTE | 2018-03-05 07:58 | PDOC.PN ---
- Subjective Encounter Start Date: 03/05/18 Encounter Start Time: 07:56 Subjective: symptoms resolved, numbness in L face, both hands. Dysphagia R - Objective Resuscitation Status: Resuscitation Status FULL:Full Resuscitation Vital Signs & Weight: Vital Signs (12 hours) Temp Pulse Resp BP Pulse Ox 03/05/18 03:26 97.9 F 72 12 03/05/18 02:10 97.9 F 72 12 137/73 97 Weight Weight 205 lb I&O: 03/04/18 03/05/18 03/06/18 06:59 06:59 06:59 Intake Total 400 Balance 400 Result Diagrams: 03/05/18 06:30 03/05/18 06:30 Additional Labs: Accuchecks 03/04/18 22:50 POC Glucose 94 Phys Exam - Physical Examination Neck: no JVD Respiratory: clear to auscultation bilateral Cardiovascular: RRR, no significant murmur Gastrointestinal: soft, non-tender Musculoskeletal: no edema Neurological: non-focal Dx/Plan (1) HTN (hypertension) Code(s): I10 - ESSENTIAL (PRIMARY) HYPERTENSION Status: Chronic Qualifiers: Hypertension type: essential hypertension Qualified Code(s): I10 - Essential (primary) hypertension (2) Asthma Code(s): J45.909 - UNSPECIFIED ASTHMA, UNCOMPLICATED Status: Chronic Qualifiers: Asthma severity: mild Asthma complication type: unspecified (3) Tobacco abuse Code(s): Z72.0 - TOBACCO USE Status: Acute (4) Paresthesias Code(s): R20.2 - PARESTHESIA OF SKIN Status: Acute - Plan no evidense for siloadenitis on PE, no leukocytosis. dc ANTIBX -: no evidense for cva on Hx or PE -: CT neck pending * .
[2018-03-05] MEDS ORDERED: Ferrous Sulfate 325 MG TAB PO SCH (08:00)
[2018-03-05] MEDS ORDERED: Aspirin 325 MG TAB PO SCH (08:00)
[2018-03-05] MEDS ORDERED: Metoprolol Tartrate 25 MG TAB PO SCH (09:00)
[2018-03-05] MEDS ORDERED: Famotidine/PF 20 mg/2ml Vial SLOW IVP SCH (09:00)
[2018-03-05] MEDS ORDERED: medroxyPROGESTERone Acetate 5 MG TAB PO SCH (09:00)
--- NOTE | 2018-03-05 10:15 | CT ---
PRELIMINARY REPORT/[facility]/EMERGENTY AFTER-HOURS PROCEDURE CT Neck With Intravenous Contrast CLINICAL HISTORY: 47 years old, female; Signs and symptoms; Abscess, tonsil; Patient HX: Parotitis TECHNIQUE: Axial computed tomography images of the neck with intravenous contrast. COMPARISON: No relevant prior studies available. FINDINGS: Oropharynx: Unremarkable. No significant tonsillar enlargement. No peritonsillar abscess. Hypopharynx: Unremarkable. Larynx: Unremarkable. Normal epiglottis. Trachea: Unremarkable. Retropharyngeal space: Unremarkable. Submandibular/parotid glands: Unremarkable. Glands are normal in size. Thyroid: Unremarkable. Bones/joints: Unremarkable. No acute fracture. Soft tissues: Unremarkable. Vasculature: Unremarkable. Lymph nodes: Unremarkable. No enlarged lymph nodes. Dental: Periapical lucency about the carious most posterior left mandibular molar with medial cortica l defect. Lung apices: Few small 2-4 mm nodules laterally in the right upper lobe. IMPRESSION: Periapical lucency and medial cortical defect about the carious most posterior left mandibular molar. No evidence of soft tissue abscess. Thank you for allowing us to participate in the care of your patient. Dictated and Authenticated by: Josef Kimball MD 03/05/2018 4:12 AM Central Time ([place] & [place]) FINAL REPORT BY DR. HE EMERGENCY AFTER HOURS STUDY CT NECK WITH CONTRAST: Date: 03/05/18 Time: 0255 hours HISTORY: 47-year-old female with parotitis. FINDINGS: There is no evidence of parotitis, parotid neoplastic tumor, sialolith, or ductal ectasia involving S tenson's ducts or Rhodelia's ducts, or their branches. There is a carious left last molar tooth, with large lucent defect involving its crown, plus osseous lucency surrounding its roots (periapical cyst). This lucency is contiguous with an osseous cortical defect at the lingual side of the adjacent portion of the left mandibular angle, where it communicate s with the left medial pterygoid muscle. No obvious moderate or large sized abscess is visualized, bu t a tiny abscess is not ruled out. This report agrees with the preliminary report by Francia. IMPRESSION: 1. Carious left last molar tooth, with periapical (radicular) cyst associated with osseous cortical breakthrough on the lingual side of the mandible, consistent with dental abscess. No moderate size or large soft tissue abscess. 2. No abnormality of the parotid or submandibular glands. POS: [facility]
--- NOTE | 2018-03-05 11:46 | HP ---
HISTORY OF PRESENT ILLNESS: This is a 46-year-old female with past medical history of cardiac arrhyt hmia who is presenting with left-sided numbness, aches, and pain which is 10/10 on the pain scale, do es not radiate, it is localized at the left submandibular region. Patient states that about 3 days a go, she had left-sided pain and also some soreness in her throat which progressively got worse. Now, patient is not able to swallow. The patient states that she has also been having subjective fevers, bilateral upper extremity numbness, and tingling sensation. Otherwise denies all other symptoms. REVIEW OF SYSTEMS: Positive for left neck pain and odynophagia. Otherwise as documented in the HPI, all review of systems reviewed and are negative. PAST MEDICAL HISTORY: Cardiac arrhythmias, anemia, hypertension. PAST SURGICAL HISTORY: Cholecystectomy, tubal ligation. FAMILY HISTORY: Includes diabetes and hypertension. PSYCHIATRIC HISTORY: Includes anxiety. SOCIAL HISTORY: Patient is a current tobacco smoker. Patient smokes half pack per day. ALLERGIES: The patient is allergic to CODEINE which gives the patient a rash. CURRENT MEDICATIONS: Patient is on, 1. Ferrous sulfate 325. 2. Provera 10 mg daily. 3. Metoprolol tartrate 25 mg orally once a day. PHYSICAL EXAMINATION: VITAL SIGNS: Blood pressure 160/90, heart rate is 82, respiratory rate is 18 and temperature is 98.5 . GENERAL: Patient appears to be in pain, but is in no apparent distress. HEENT: Normocephalic, atraumatic. Pupils are equally round and reactive to light. Extraocular move ments are intact. There is no scleral icterus. NECK: There is left submandibular mass which is palpable, tender on the pain scale of 10/10, no eryt miguelito, ecchymosis or hematoma noted. EARS: There was mild erythema in the ear. MOUTH: Oral mucosa is moist. There is no erythema noted in the posterior pharynx. LUNGS: Clear to auscultation bilaterally. No wheezing, no rales, no rhonchi is appreciated. CARDIAC: Positive S1, S2, regular rate and rhythm. No murmurs, no gallops or rubs appreciated. ABDOMEN: Soft, nontender, nondistended, obese abdomen. Positive bowel sounds in all quadrants. No masses. No pulsatile masses. No peritoneal signs appreciated. BACK: Full range of motion. No costovertebral angle tenderness. MUSCULOSKELETAL: Upper extremities, patient has good strength of the upper extremity and lower extre mity bilaterally. NEUROLOGIC: Patient has odynophagia and complains of numbness and tingling sensation of the upper e xtremity and left facial. Otherwise all are negative. SKIN: Warm, dry and intact. No rash noted. LYMPHATICS: Patient has a submandibular mass that can be palpated. IMAGING DATA: 1. EKG, normal sinus rhythm. 2. In the ED, the patient was given metoclopramide and aspirin. 3. CT of the neck showed carious left last molar tooth with periapical cyst associated with osseous cortical breakthrough on the lingual side of the mandible consistent with dental abscess. No moderat e size or large soft tissue abscess. No abnormality of the parotid or submandibular joints. 4. CT of the brain, no acute intracranial abnormality demonstrated. There is white matter hypodensi ties, which is nonspecific, but may be attributable to chronic small vessel ischemic changes, but a d egree of chronic white matter ischemic changes with atypical for the patient's age, demyelinating pro cess versus other etiology cannot be entirely excluded, but this is stable finding. 5. Chest x-ray, no acute cardiopulmonary process. LABORATORY DATA: WBC 4.9, hemoglobin 12.8, hematocrit 36.5, platelet 195. Sodium 139, potassium 3.5 , chloride 110, carbon dioxide 18, anion gap 15, BUN 12, creatinine 0.68. ASSESSMENT AND PLAN: This is a 47-year-old female with past medical history of hypertension and card iac arrhythmia being admitted for: 1. Left-sided submandibular mass, likely due to dental abscess. CT shows that there is no sialadeni tis or parotitis. At this point, patient's antibiotics have been held and patient will need to be re ferred to a dentist for evaluation. We will give patient pain medication p.r.n. for pain. 2. History of anemia. Patient takes iron for anemia. Patient is having some difficulty swallowing. We will continue patient's medication once patient is able to tolerate the iron pills. 3. Hypertension, uncontrolled. At this time, we will keep patient on IV medication p.r.n. for blood pressure control. Patient is having difficulty swallowing her pills and also patient states that sh e ran out of her home medications. This can be a contributory factor to why patient's blood pressure is elevated 4. Upper extremity numbness until fixation, most likely due to anxiety. Patient has a history of an xiety. At this point, patient is stable. We will monitor the patient closely. 5. DVT/GI prophylaxis.
[2018-03-05 11:53] VITALS: BP 115/66; TEMP 98.8
--- NOTE | 2018-03-05 15:15 | DIS ---
DATE OF ADMISSION: 03/05/2018 DATE OF DISCHARGE: 03/05/2018 PRIMARY CARE PHYSICIAN: Essence Burnette. DISCHARGE DISPOSITION: Discharged home. FINAL DIAGNOSES: Dental abscess, hypertension, history of asthma and tobacco abuse. DISCHARGE MEDICATIONS: Amoxicillin 500 mg p.o. q.8 hours x10 days, ferrous sulfate 325 a day, metopr olol 25 mg twice a day, Provera 10 mg p.o. daily. ALLERGIES: CODEINE. CODE STATUS: FULL. DIET: As tolerated. PENDING AT TIME OF DISCHARGE: Nothing. HOSPITAL COURSE: The patient was seen in the emergency room with right facial pain, some numbness. Laboratory was unremarkable with 4.9 white count, hemoglobin 12.8, platelet count 195,000. [facility] metabolic profile showed a mild decreased CO2 of 18, follow up was 22. Electrolytes, BUN and cr eatinine, liver function tests normal. Patient was referred to [facility], put in the hospital on Zosyn and vancomycin. When I saw the patient this morning, she had no stigmata of siala denitis which was the admitting diagnosis. There was no tenderness under any of the salivary glands with no tenderness anywhere in her head and neck. She has also complained of some numbness the re and fingers tingling and trouble swallowing. All of her symptoms had resolved by this morning and antibiotics were discontinued and the patient was watched, fed. An MRI which was done and available prior to admission showed a dental abscess with no sialadenitis. The patient has been febrile. She is desirous of going home. Her neurological exam was totally normal. I did a careful one. Cranial nerves II through XII are intact. Deep tendon reflexes symmetric. Toes downgoing. Moves all extre mities. Strength symmetric. Uopofj-yjqm-hzjnia normal. No consultations. No procedures. The rowan ent was given a prescription for amoxicillin 500 t.i.d. and told she needed to go see a dentist.
[2018-03-05] MEDS ORDERED: Vancomycin HCl 1.25 GM in Sodium Chloride 0.9% 250 ML 250 ML IVPB SCH (16:00)
== END 2018-03-05 14:49 | disposition home or self-care (01) | DRG 159 ==
LOC: ERS 22:13 → 2SE 03-05 00:20
PROVIDERS: ADMIT Internal Medicine; ATTEND Internal Medicine
DX: K04.7 Periapical abscess without sinus (principal); J45.909 Unspecified asthma, uncomplicated; I10 Essential (primary) hypertension
CPT/HCPCS: 36415; 36416; 70450; 70491; 71045; 80048; 80053; 82553; 84484; 85025; 93005; 96365; J2543; J2765; J3370; J7050; S0028

== ENCOUNTER 2018-04-28 11:26 | Emergency (ER) | payer SELFPAY | END 2018-04-28 12:35 | disposition home or self-care (01) | LOC: ERS 11:26 | DX: J06.9 Acute upper respiratory infection, unspecified (principal); L98.9 Disorder of the skin and subcutaneous tissue, unspecified; I10 Essential (primary) hypertension; J45.909 Unspecified asthma, uncomplicated; F41.9 Anxiety disorder, unspecified; F17.210 Nicotine dependence, cigarettes, uncomplicated | CPT/HCPCS: 99283 ==

== ENCOUNTER 2018-06-08 17:28 | Emergency (ER) | payer SELFPAY ==
[2018-06-08 18:21] LABS: #Eosinphils 0.1 thou/uL (0.0-0.7); #Lymphocytes 1.7 thou/uL (1.20-3.40); #Monocytes 0.4 thou/uL (0.11-0.59); #Neutrophils 2.4 thou/uL (1.40-6.50); %Basophils 0.8 % (0.0-1.0); %Eosinophils 2.6 % (0.0-10.0); %Lymphocytes 36.1 % (21.0-51.0); %Monocytes 8.6 % (0.0-10.0); %Neutrophils 51.9 % (42.0-75.0); Hemoglobin 13.7 g/dL (12.0-16.0); Mean Corpuscular HGB CONC 34.3 g/dL (32.0-36.0); Mean Corpuscular Hemoglobin 32.3 pg (27.0-31.0); Mean Corpuscular Volume 94.3 fL (78.0-98.0); Mean Platelet Volume 7.9 fL (7.4-10.4); Platelet Count 209 thou/uL (130-400); RBC Distribution Width 12.7 % (11.5-14.5); Red Blood Cell (RBC) Count 4.24 mill/uL (4.20-5.40); White Blood Cell (WBC) Count 4.6 thou/uL (4.8-10.8)
[2018-06-08 18:39] LABS: Bilirubin Negative (Negative); Blood, Urine Negative (Negative); Clarity CLEAR (Clear); Glucose, Urine (Dipstick) Negative (Negative); Leukocyte Negative (Negative); Nitrite Negative (Negative); Protein, Urine (Dipstick) Negative (Neg-Trace); Specific Gravity, Urine 1.028 (1.002-1.036)
[2018-06-08 18:41] LABS: Anion Gap 12 mmol/L (10-20); BUN (Urea Nitrogen) 11 mg/dL (7.0-18.7); Calc. Creatinine Clearance 0 mL/min (70-130); Calcium 9.3 mg/dL (7.8-10.44); Carbon Dioxide 26 mmol/L (22-29); Chloride 108 mmol/L (98-107); Estimated GFR-MDRD 88; Glucose 118 mg/dL (70-105); Lipase 49 U/L (8-78); Potassium 3.9 mmol/L (3.5-5.1); Sodium 142 mmol/L (136-145)
[2018-06-08 18:43] LABS: Pregnancy Test - Urine (BHCG) Negative (Negative); Pregu Control Background? CLEAR/WHITE (CLR/WHITE); Pregu Control Bar Appear? YES (CONTROL BAR); Specific Gravity 1.028 (1.002-1.036)
--- NOTE | 2018-06-11 15:53 | EKG ---
Test Reason : Blood Pressure : / mmHG Vent. Rate : 076 BPM Atrial Rate : 076 BPM P-R Int : 176 ms QRS Dur : 088 ms QT Int : 386 ms P-R-T Axes : 046 054 031 degrees QTc Int : 434 ms Normal sinus rhythm Normal ECG Confirmed by NAKITA GRAVES ([id number]), editor city RANJIT BENAVIDES ([id number]) on 06/11/2018 3:53:08 PM Referred By: Confirmed By:NAKITA GRAVES
== END 2018-06-08 18:57 | disposition home or self-care (01) ==
LOC: ERS 17:28
DX: M25.511 Pain in right shoulder (principal); R10.13 Epigastric pain; D64.9 Anemia, unspecified; J45.909 Unspecified asthma, uncomplicated; I10 Essential (primary) hypertension; F41.9 Anxiety disorder, unspecified; F17.210 Nicotine dependence, cigarettes, uncomplicated
CPT/HCPCS: 36415; 80048; 81003; 81025; 82150; 83690; 84484; 85025; 93005

== ENCOUNTER 2018-08-17 10:47 | Emergency (ER) | payer SELFPAY ==
[2018-08-17] MEDS ORDERED: predniSONE 20 MG TAB ONE (11:45)
--- NOTE | 2018-08-17 13:29 | RAD ---
4 VIEW LEFT KNEE SERIES: Date: 08/17/18 INDICATION: Posterior and lateral left knee pain. FINDINGS: There is moderate osteoarthritis with tricompartmental osteophytosis, joint compartment narrowing, an d subchondral sclerosis/cyst formation. No significant joint capsular distention. There is no fractur e or dislocation visualized. IMPRESSION: Moderate osteoarthritis of the left knee. POS: [facility]
== END 2018-08-17 12:05 | disposition home or self-care (01) ==
LOC: ERS 10:47
DX: M17.12 Unilateral primary osteoarthritis, left knee (principal); D64.9 Anemia, unspecified; J45.909 Unspecified asthma, uncomplicated; F41.9 Anxiety disorder, unspecified; F17.210 Nicotine dependence, cigarettes, uncomplicated
CPT/HCPCS: 93005

== ENCOUNTER 2018-09-10 13:28 | Emergency (ER) | payer SELFPAY ==
[2018-09-10] MEDS ORDERED: Morphine 4 MG/ML VIAL ONE (14:47)
[2018-09-10 15:08] LABS: #Eosinphils 0.1 thou/uL (0.0-0.7); #Lymphocytes 1.5 thou/uL (1.20-3.40); #Monocytes 0.5 thou/uL (0.11-0.59); #Neutrophils 3.6 thou/uL (1.40-6.50); %Basophils 0.7 % (0.0-1.0); %Eosinophils 2.1 % (0.0-10.0); %Lymphocytes 26.2 % (21.0-51.0); %Monocytes 8.5 % (0.0-10.0); %Neutrophils 62.5 % (42.0-75.0); Hemoglobin 13.7 g/dL (12.0-16.0); Mean Corpuscular Hemoglobin 32.5 pg (27.0-31.0); Mean Corpuscular Volume 95.7 fL (78.0-98.0); Mean Platelet Volume 8.2 fL (7.4-10.4); Platelet Count 199 thou/uL (130-400); RBC Distribution Width 12.6 % (11.5-14.5); Red Blood Cell (RBC) Count 4.22 mill/uL (4.20-5.40); White Blood Cell (WBC) Count 5.7 thou/uL (4.8-10.8)
[2018-09-10 15:24] LABS: ALT (SGPT) 15 U/L (8-55); AST (SGOT) 17 U/L (5-34); Alkaline Phosphatase 62 U/L (40-150); Anion Gap 9 mmol/L (10-20); BUN (Urea Nitrogen) 12 mg/dL (7.0-18.7); Bilirubin, Total 0.3 mg/dL (0.2-1.2); Calc. Creatinine Clearance 0 mL/min (70-130); Calcium 9.2 mg/dL (7.8-10.44); Carbon Dioxide 27 mmol/L (22-29); Chloride 106 mmol/L (98-107); Estimated GFR-MDRD Greater than 90; Glucose 94 mg/dL (70-105); Potassium 4.2 mmol/L (3.5-5.1); Sodium 138 mmol/L (136-145)
--- NOTE | 2018-09-10 16:30 | ULT ---
VENOUS DOPPLER ULTRASOUND OF THE RIGHT LOWER EXTREMITY: 09/10/18 HISTORY: Right lower extremity edema. TECHNIQUE: Gant scale ultrasound with color flow and spectral doppler imaging of the deep venous system of the r ight lower extremity was performed. FINDINGS: There is good flow, compression and augmentation noted in the right common femoral, deep femoral, pop liteal and posterior tibial and greater saphenous veins. IMPRESSION: No evidence of DVT in the right lower extremity. POS: [facility]
--- NOTE | 2018-09-10 17:29 | RAD ---
FOUR VIEWS RIGHT KNEE 09/10/18 HISTORY: Right knee swelling. Pain. AP, lateral and both oblique views right knee obtained. Comparison made to previous exam from 12/20/10. Four views right knee demonstrates joint space narrowing with osteophytes seen in the medial, lateral and anterior compartments. Findings compatible with moderate to severe tricompartmental osteoarthrit is. No evidence of acute fractures or bony lesions seen. IMPRESSION: Right knee osteoarthritis. POS: [facility]
--- NOTE | 2018-09-10 17:37 | RAD ---
TWO VIEW RIGHT HIP 09/10/18 INDICATION: Right leg edema, pain. FINDINGS: There is mild osteoarthritis. No fracture or dislocation. IMPRESSION: No acute osseous abnormality of the right hip. POS: [facility]
[2018-09-10] MEDS ORDERED: Ketorolac Tromethamine 30 MG/ML VIAL ONE (18:04)
== END 2018-09-10 18:09 | disposition home or self-care (01) ==
LOC: ERS 13:28
DX: M79.661 Pain in right lower leg (principal); M79.89 Other specified soft tissue disorders; D64.9 Anemia, unspecified; J45.909 Unspecified asthma, uncomplicated; I10 Essential (primary) hypertension; F41.9 Anxiety disorder, unspecified; F17.210 Nicotine dependence, cigarettes, uncomplicated
CPT/HCPCS: 80053; 85025; 86140; 96374; 96375; J1885; J2270

== ENCOUNTER 2018-09-22 04:15 | Emergency (ER) | payer SELFPAY ==
[2018-09-22 05:03] LABS: #Eosinphils 0.2 thou/uL (0.0-0.7); #Lymphocytes 1.7 thou/uL (1.20-3.40); #Monocytes 0.4 thou/uL (0.11-0.59); #Neutrophils 2.2 thou/uL (1.40-6.50); %Basophils 0.9 % (0.0-1.0); %Eosinophils 3.5 % (0.0-10.0); %Lymphocytes 38.3 % (21.0-51.0); %Neutrophils 49.3 % (42.0-75.0); Hemoglobin 14.3 g/dL (12.0-16.0); Mean Corpuscular HGB CONC 33.4 g/dL (32.0-36.0); Mean Corpuscular Hemoglobin 32.3 pg (27.0-31.0); Mean Corpuscular Volume 96.9 fL (78.0-98.0); Mean Platelet Volume 7.9 fL (7.4-10.4); Platelet Count 213 thou/uL (130-400); RBC Distribution Width 12.6 % (11.5-14.5); Red Blood Cell (RBC) Count 4.42 mill/uL (4.20-5.40); White Blood Cell (WBC) Count 4.4 thou/uL (4.8-10.8)
[2018-09-22 05:23] LABS: ALT (SGPT) 11 U/L (8-55); AST (SGOT) 14 U/L (5-34); Albumin 3.9 g/dL (3.5-5.0); Alkaline Phosphatase 52 U/L (40-150); Anion Gap 8 mmol/L (10-20); BUN (Urea Nitrogen) 12 mg/dL (7.0-18.7); Bilirubin, Total 0.8 mg/dL (0.2-1.2); Calc. Creatinine Clearance 0 mL/min (70-130); Carbon Dioxide 25 mmol/L (22-29); Chloride 107 mmol/L (98-107); Estimated GFR-MDRD Greater than 90; Globulin 2.9 g/dL (2.4-3.5); Glucose 94 mg/dL (70-105); Protein, Total 6.8 g/dL (6.0-8.3); Sodium 136 mmol/L (136-145)
[2018-09-22] MEDS ORDERED: Ketorolac Tromethamine 30 MG/ML VIAL ONE (06:47)
[2018-09-22] MEDS ORDERED: Lidocaine 1% (PF) 30 ML VIAL ONE (06:47)
[2018-09-22] MEDS ORDERED: Metoclopramide HCl 10 MG TAB ONE (07:00)
[2018-09-22] MEDS ORDERED: diphenhydrAMINE 50 MG CAP ONE (07:00)
--- NOTE | 2018-09-22 08:48 | CT ---
BRAIN CT WITHOUT IV CONTRAST: HISTORY: Headache, blurred vision, nausea, chills. COMPARISON: 03/04/2018. FINDINGS: Evidence for chronic white matter ischemic changes bilaterally. No focal mass or midline shift. Sin uses and mastoids are clear. IMPRESSION: No acute intracranial process. No mass or bleed. Stable from 03/04/2018. POS: [facility]
== END 2018-09-22 08:16 | disposition home or self-care (01) ==
LOC: ERS 04:15
DX: R51 Headache (principal); Z71.6 Tobacco abuse counseling; D64.9 Anemia, unspecified; J45.909 Unspecified asthma, uncomplicated; I10 Essential (primary) hypertension; F17.210 Nicotine dependence, cigarettes, uncomplicated; F41.9 Anxiety disorder, unspecified
CPT/HCPCS: 36415; 70450; 80053; 85025; 96372; 99406; J1885; J2001; J8597

== ENCOUNTER 2018-11-14 12:33 | Emergency (ER) | payer SELFPAY | END 2018-11-14 13:22 | disposition home or self-care (01) | LOC: ERS 12:33 | DX: M54.42 Lumbago with sciatica, left side (principal); F41.9 Anxiety disorder, unspecified; F17.210 Nicotine dependence, cigarettes, uncomplicated | CPT/HCPCS: 99283 ==

== ENCOUNTER 2018-12-17 17:44 | Emergency (ER) | payer SELFPAY ==
--- NOTE | 2018-12-17 18:14 | RAD ---
XR Chest Pa Lat STANDARD HISTORY: Cough COMPARISON: 11/19/2017 study FINDINGS: Heart size is borderline. Mediastinal structures appear unremarkable. The lungs are clear o f infiltrates. No bony findings. IMPRESSION: No active intrathoracic disease.
== END 2018-12-17 19:56 | disposition home or self-care (01) ==
LOC: ERS 17:44
DX: J45.909 Unspecified asthma, uncomplicated (principal)
CPT/HCPCS: 71046

== ENCOUNTER 2019-03-10 21:18 | Emergency (ER) | payer SELFPAY | END 2019-03-10 22:00 | disposition home or self-care (01) | LOC: ERS 21:18 | DX: M54.42 Lumbago with sciatica, left side (principal); F41.9 Anxiety disorder, unspecified; F17.210 Nicotine dependence, cigarettes, uncomplicated | CPT/HCPCS: 99283 ==

== ENCOUNTER 2019-05-20 02:17 | Emergency (ER) | payer SELFPAY ==
[2019-05-20 03:18] LABS: #Basophils 0.1 thou/uL (0.0-0.2); #Eosinphils 0.1 thou/uL (0.0-0.7); #Lymphocytes 2.5 thou/uL (1.20-3.40); #Monocytes 0.4 thou/uL (0.11-0.59); #Neutrophils 2.9 thou/uL (1.40-6.50); %Eosinophils 1.9 % (0.0-10.0); %Monocytes 7.1 % (0.0-10.0); Hemoglobin 14.2 g/dL (12.0-16.0); Mean Corpuscular HGB CONC 34.3 g/dL (32.0-36.0); Mean Corpuscular Hemoglobin 32.1 pg (27.0-31.0); Mean Corpuscular Volume 93.8 fL (78.0-98.0); Mean Platelet Volume 9.2 fL (7.4-10.4); Platelet Count 170 thou/uL (130-400); RBC Distribution Width 12.7 % (11.5-14.5); Red Blood Cell (RBC) Count 4.42 mill/uL (4.20-5.40)
[2019-05-20 04:05] LABS: ALT (SGPT) 17 U/L (8-55); AST (SGOT) 17 U/L (5-34); Alkaline Phosphatase 61 U/L (40-110); Anion Gap 17 mmol/L (10-20); BUN (Urea Nitrogen) 12 mg/dL (7.0-18.7); Bilirubin, Total 0.4 mg/dL (0.2-1.2); Calc. Creatinine Clearance 0 mL/min (70-130); Carbon Dioxide 17 mmol/L (22-29); Chloride 110 mmol/L (98-107); Estimated GFR-MDRD Greater than 90; Globulin 2.8 g/dL (2.4-3.5); Glucose 127 mg/dL (70-105); Magnesium 1.9 mg/dL (1.6-2.6); Phosphorus 3.1 mg/dL (2.3-4.7); Potassium 3.7 mmol/L (3.5-5.1); Protein, Total 6.8 g/dL (6.0-8.3); Sodium 140 mmol/L (136-145)
== END 2019-05-20 04:22 | disposition home or self-care (01) ==
LOC: ERS 02:17
DX: I48.91 Unspecified atrial fibrillation (principal); I10 Essential (primary) hypertension
CPT/HCPCS: 80053; 83735; 83880; 84100; 84443; 84484; 85025; 93005

== ENCOUNTER 2019-08-31 10:03 | Emergency (ER) | payer SELFPAY ==
[2019-08-31 10:50] LABS: #Eosinphils 0.1 thou/uL (0.0-0.7); #Lymphocytes 1.6 thou/uL (1.20-3.40); #Monocytes 0.3 thou/uL (0.11-0.59); #Neutrophils 1.8 thou/uL (1.40-6.50); %Eosinophils 2.5 % (0.0-10.0); %Lymphocytes 41.5 % (21.0-51.0); %Monocytes 8.5 % (0.0-10.0); %Neutrophils 47.5 % (42.0-75.0); Hemoglobin 14.7 g/dL (12.0-16.0); Mean Corpuscular HGB CONC 32.9 g/dL (32.0-36.0); Mean Corpuscular Hemoglobin 31.6 pg (27.0-31.0); Mean Corpuscular Volume 95.8 fL (78.0-98.0); Mean Platelet Volume 8.3 fL (7.4-10.4); Platelet Count 192 thou/uL (130-400); Red Blood Cell (RBC) Count 4.65 mill/uL (4.20-5.40); White Blood Cell (WBC) Count 3.8 thou/uL (4.8-10.8)
--- NOTE | 2019-08-31 10:56 | RAD ---
Portable frontal chest radiograph: 08/31/2019 COMPARISON: 03/04/2018 HISTORY: Vertigo, hypertension FINDINGS: Lungs are clear. Heart and mediastinal contours appear within normal limits. IMPRESSION: No acute findings.
[2019-08-31] MEDS ORDERED: Ondansetron ODT 4 MG TAB ONE (11:04)
[2019-08-31] MEDS ORDERED: Meclizine HCl 25 MG TAB ONE (11:05)
[2019-08-31 11:11] LABS: ALT (SGPT) 11 U/L (8-55); AST (SGOT) 13 U/L (5-34); Albumin 4.1 g/dL (3.5-5.0); Alkaline Phosphatase 58 U/L (40-110); Anion Gap 12 mmol/L (10-20); BUN (Urea Nitrogen) 10 mg/dL (7.0-18.7); Bilirubin, Total 0.5 mg/dL (0.2-1.2); CK (CPK) 147 U/L (29-168); Calc. Creatinine Clearance 0 mL/min (70-130); Carbon Dioxide 25 mmol/L (22-29); Chloride 109 mmol/L (98-107); Estimated GFR-MDRD Greater than 90; Globulin 2.8 g/dL (2.4-3.5); Glucose 103 mg/dL (70-105); Magnesium 1.6 mg/dL (1.6-2.6); Potassium 3.8 mmol/L (3.5-5.1); Protein, Total 6.9 g/dL (6.0-8.3); Sodium 142 mmol/L (136-145)
== END 2019-08-31 12:18 | disposition home or self-care (01) ==
LOC: ERS 10:03
DX: R42 Dizziness and giddiness (principal); I10 Essential (primary) hypertension; Z79.899 Other long term (current) drug therapy
CPT/HCPCS: 36415; 71045; 80053; 82550; 83735; 84443; 84484; 85025; 93005; 94760; J8597; Q0162

== ENCOUNTER 2020-10-10 14:00 | Emergency (ER) | payer SELFPAY ==
[2020-10-10 22:56] LABS: SARS-CoV-2 PCR by NAA Not Detected (NotDetected)
== END 2020-10-10 15:30 | disposition home or self-care (01) ==
LOC: ERS 14:00
DX: R51.9 Headache, unspecified (principal); R19.7 Diarrhea, unspecified; R05 Cough; Z20.822 Contact with and (suspected) exposure to COVID-19; I10 Essential (primary) hypertension; F17.210 Nicotine dependence, cigarettes, uncomplicated; Z79.899 Other long term (current) drug therapy
CPT/HCPCS: 87635; 99284; U0003; U0005

== ENCOUNTER 2020-11-04 15:50 | Outpatient (CLI) | payer OTHER | END 2020-11-04 15:51 | disposition home or self-care (01) | LOC: BICRAD 15:50 | DX: M79.671 Pain in right foot (principal) ==

== ENCOUNTER 2021-06-29 22:26 | Emergency (ER) | payer BC ==
[2021-06-29 23:25] LABS: #Lymphocytes 1.3 thou/uL (1.20-3.40); #Monocytes 0.4 thou/uL (0.11-0.59); #Neutrophils 1.2 thou/uL (1.40-6.50); %Basophils 0.3 % (0.0-1.0); %Eosinophils 1.5 % (0.0-10.0); %Lymphocytes 42.9 % (21.0-51.0); %Monocytes 14.6 % (0.0-10.0); %Neutrophils 40.7 % (42.0-75.0); Hemoglobin 13.5 g/dL (12.0-16.0); Mean Corpuscular HGB CONC 33.9 g/dL (32.0-36.0); Mean Corpuscular Hemoglobin 32.8 pg (27.0-31.0); Mean Corpuscular Volume 96.9 fL (78.0-98.0); Mean Platelet Volume 7.7 fL (7.4-10.4); Platelet Count 179 thou/uL (130-400); RBC Distribution Width 12.7 % (11.5-14.5); Red Blood Cell (RBC) Count 4.12 mill/uL (4.20-5.40)
[2021-06-30 00:18] LABS: ALT (SGPT) 25 U/L (8-55); AST (SGOT) 27 U/L (5-34); Alkaline Phosphatase 54 U/L (40-110); Anion Gap 9 mmol/L (10-20); BUN (Urea Nitrogen) 10 mg/dL (9.8-20.1); Bilirubin, Total 0.3 mg/dL (0.2-1.2); Calc. Creatinine Clearance 0 mL/min (70-130); Calcium 9.3 mg/dL (7.8-10.44); Carbon Dioxide 32 mmol/L (22-29); Chloride 102 mmol/L (98-107); Globulin 3.2 g/dL (2.4-3.5); Glucose 103 mg/dL (70-105); Potassium 3.8 mmol/L (3.5-5.1); Protein, Total 7.2 g/dL (6.0-8.3); Sodium 139 mmol/L (136-145)
[2021-06-30 01:00] LABS: Bilirubin Negative (Negative); Blood, Urine Negative (Negative); Clarity Clear (Clear); Glucose, Urine (Dipstick) Normal (Negative); Ketone, Urine Negative (Negative); Leukocyte Negative Leu/uL (Negative); Nitrite Negative (Negative); Protein, Urine (Dipstick) Negative (Neg-Trace); Specific Gravity, Urine 1.024 (1.002-1.036); Urobilinogen Normal mg/dL (Less than 2); pH, Urine 5.5 (5.0-9.0)
[2021-06-30 01:52] LABS: Specific Gravity 1.024 (1.002-1.036)
[2021-06-30 01:55] LABS: Pregnancy Test - Urine (BHCG) Negative (Negative); Pregu Control Background? CLEAR/WHITE (CLR/WHITE); Pregu Control Bar Appear? YES (CONTROL BAR)
[2021-06-30] MEDS ORDERED: Cyclobenzaprine 10 MG TAB ONE (02:27)
[2021-06-30] MEDS ORDERED: Ketorolac Tromethamine 30 MG/ML VIAL ONE (02:27)
== END 2021-06-30 02:51 | disposition home or self-care (01) ==
LOC: ERS 22:26
DX: M54.50 Low back pain, unspecified (principal); I10 Essential (primary) hypertension; J45.909 Unspecified asthma, uncomplicated; F17.210 Nicotine dependence, cigarettes, uncomplicated; Z79.899 Other long term (current) drug therapy
CPT/HCPCS: 36415; 80053; 81003; 81025; 85025; 96372; 99283; J1885

== ENCOUNTER 2021-12-25 13:50 | Emergency (ER) | payer BC ==
[2021-12-25] MEDS ORDERED: Ketorolac Tromethamine 30 MG/ML VIAL ONE (16:14)
== END 2021-12-25 16:43 | disposition home or self-care (01) ==
LOC: ERS 13:50
DX: M62.830 Muscle spasm of back (principal); I10 Essential (primary) hypertension; J45.909 Unspecified asthma, uncomplicated; F17.210 Nicotine dependence, cigarettes, uncomplicated
CPT/HCPCS: 96372; 99283; J1885

== ENCOUNTER 2023-01-24 15:54 | Emergency (ER) | payer BC ==
[2023-01-24] MEDS ORDERED: Ketorolac Tromethamine 30 MG/ML VIAL ONE (16:32)
== END 2023-01-24 17:10 | disposition home or self-care (01) ==
LOC: ERS 15:54
DX: M25.571 Pain in right ankle and joints of right foot (principal); I10 Essential (primary) hypertension; F17.210 Nicotine dependence, cigarettes, uncomplicated
CPT/HCPCS: 96372; J1885

== ENCOUNTER 2023-11-29 22:27 | Emergency (ER) | payer BC, OTHER ==
[~2023-11-29 22:27] MED LIST changes: -ISOVUE-370 76%-LOCM 1 ML ONE; +Iopamidol-370 76% 500 ML MDV (1 ML CHARGE) ONE
[2023-11-29] MEDS ORDERED: Morphine 4 MG/ML VIAL ONE (23:10)
[2023-11-29] MEDS ORDERED: Ondansetron PF 4 MG/2 ML Vial ONE (23:10)
[2023-11-29 23:15] LABS: #Basophils 0.03 10x3/uL (0.0-0.2); %Basophils 0.5 % (0.0-1.0); %Eosinophils 0.9 % (0.0-10.0); %Lymphocytes 23.5 % (21.0-51.0); %Monocytes 7.7 % (0.0-10.0); %Neutrophils 67.1 % (42.0-75.0); Hematocrit 43.8 % (36.0-47.0); Mean Corpuscular HGB CONC 34.2 g/dL (32.0-36.0); Mean Corpuscular Hemoglobin 31.3 pg (27.0-31.0); Mean Corpuscular Volume 91.4 fL (78.0-98.0); Mean Platelet Volume 10.3 fL (7.4-10.4); Platelet Count 224 10x3/uL (130-400); RBC Distribution Width 13.7 % (11.5-14.5); Red Blood Cell (RBC) Count 4.79 mill/uL (4.20-5.40)
[2023-11-29 23:42] LABS: Lipase 45 U/L (8-78)
[2023-11-29 23:43] LABS: Acetaminophen Less than 10 mcg/mL (10.0-30.0); Alcohol 207.6 mg/dL (Less than 10); Salicylate Less than 8.0 mg/dL (15.0-30.0)
[2023-11-29 23:44] LABS: ALT (SGPT) 19 U/L (8-55); AST (SGOT) 25 U/L (5-34); Albumin 4.1 g/dL (3.5-5.0); Alkaline Phosphatase 61 U/L (40-110); Anion Gap 17 mmol/L (10-20); BUN (Urea Nitrogen) 8 mg/dL (9.8-20.1); Bilirubin, Total 0.9 mg/dL (0.2-1.2); Calc. Creatinine Clearance 0 mL/min (70-130); Calcium 9.8 mg/dL (7.8-10.44); Carbon Dioxide 21 mmol/L (22-29); Chloride 106 mmol/L (98-107); Estimated GFR 92; Globulin 3.7 g/dL (2.4-3.5); Glucose 107 mg/dL (70-105); Potassium 4.1 mmol/L (3.5-5.1); Protein, Total 7.8 g/dL (6.0-8.3); Sodium 140 mmol/L (136-145)
[2023-11-29 23:48] LABS: Troponin I Less than 0.010 ng/mL (< 0.028)
[2023-11-30 02:51] LABS: Amphetamine Not Detected (NotDetected); Barbiturates Screen Not Detected (NotDetected); Benzodiazepine Screen Not Detected (NotDetected); Cocaine Metabolite Screen Not Detected (NotDetected); Methadone Not Detected (NotDetected); Methamphetamine Not Detected (NotDetected); Opiate Screen Detected (NotDetected); Oxycodone Screen Not Detected (NotDetected); Phencyclidine (PCP) Not Detected (NotDetected); THC/Cannabinoid Screen Not Detected (NotDetected); Tricyclic Screen Not Detected (NotDetected)
== END 2023-11-30 02:00 | disposition home or self-care (01) ==
LOC: ERS 22:27
DX: R07.2 Precordial pain (principal); M54.2 Cervicalgia; M54.9 Dorsalgia, unspecified; F10.129 Alcohol abuse with intoxication, unspecified; R93.89 Abnormal findings on diagnostic imaging of other specified body structures; I10 Essential (primary) hypertension; F17.210 Nicotine dependence, cigarettes, uncomplicated; V49.9XXA Car occupant (driver) (passenger) injured in unspecified traffic accident, initial encounter; W22.11XA Striking against or struck by driver side automobile airbag, initial encounter; Y90.7 Blood alcohol level of 200-239 mg/100 ml; Z79.899 Other long term (current) drug therapy
CPT/HCPCS: 36415; 70450; 71045; 71260; 72125; 74177; 80053; 80306; 80307; 83690; 83735; 83880; 84484; 85025; 93005; 96374; 96375; J2270; J2405; Q9967

== ENCOUNTER 2024-05-15 14:08 | Outpatient (CLI) | payer OTHER, BC | END 2024-05-15 14:09 | disposition home or self-care (01) | LOC: BICMAMMO 14:08 | PROVIDERS: ATTEND Nurse Practitioner Family | DX: Z12.31 Encounter for screening mammogram for malignant neoplasm of breast (principal) | CPT/HCPCS: 77063; 77067 ==